=== PATIENT | male | born 1970 | race Caucasian/White ===

== ENCOUNTER 2019-04-28 06:52 | Day surgery (SDC) | payer OTHER ==
[2019-04-27 14:49] VITALS: BMI 29.0
[2019-04-28] MEDS ORDERED: PROPOFOL 20 ML ONE ×2 (08:14)
[2019-04-28] MEDS ORDERED: LIDOCAINE HCL/PF 2% SDV 5ML VIAL ONE (08:14)
[2019-04-28 09:22] VITALS: BP 110/65; PULSE 75; TEMP 98
== END 2019-04-28 09:42 | disposition home or self-care (01) ==
LOC: FASU-ENDO 06:52
PROVIDERS: ATTEND Internal Medicine Gastroenterology
PROC: 0DJD8ZZ Inspection of Lower Intestinal Tract, Via Natural or Artificial Opening Endoscopic (ICD-10-PCS; principal; 2019-04-28 08:25)
DX: Z12.11 Encounter for screening for malignant neoplasm of colon (principal); Z80.0 Family history of malignant neoplasm of digestive organs; K57.30 Diverticulosis of large intestine without perforation or abscess without bleeding

== ENCOUNTER 2024-04-27 07:24 | Day surgery (SDC) | payer OTHER ==
[2024-04-21 15:10] VITALS: BMI 28.8
[2024-04-27 08:11] VITALS: RESP 18
[2024-04-27] MEDS ORDERED: PROPOFOL 40 ML ONE (08:30)
[2024-04-27 08:59] VITALS: TEMP 97.8
[2024-04-27 10:00] VITALS: BP 118/64; PULSE 71
== END 2024-04-27 09:30 | disposition home or self-care (01) ==
LOC: FASU-ENDO 07:24
PROVIDERS: ATTEND Internal Medicine Gastroenterology
PROC: 0DJD8ZZ Inspection of Lower Intestinal Tract, Via Natural or Artificial Opening Endoscopic (ICD-10-PCS; principal; 2024-04-27 08:37)
DX: Z12.11 Encounter for screening for malignant neoplasm of colon (principal); K57.30 Diverticulosis of large intestine without perforation or abscess without bleeding; Z80.0 Family history of malignant neoplasm of digestive organs